=== PATIENT | female | born 1995 | race Two or more races ===

== ENCOUNTER 2017-05-18 12:09 | Outpatient (CLI) | payer OTHER ==
[2017-05-18 12:56] LABS: AMORPHOUS SEDIMENT,URINE TRACE /HPF; APPEARANCE,URINE SLIGHTLY-CLOUDY; BILIRUBIN,URINE NEGATIVE (NEGATIVE); COLOR,URINE YELLOW; GLUCOSE, URINE 50 mg/dL (NEGATIVE); KETONES,URINE NEGATIVE (NEGATIVE); LEUKOCYTE ESTERASE,URINE NEGATIVE (NEGATIVE); NITRITE,URINE NEGATIVE (NEGATIVE); PROTEIN,URINE NEGATIVE (NEGATIVE); UROBILINOGEN,URINE NEGATIVE mg/dL (<2.0)
[2017-05-18 13:12] LABS: AMNISURE (ROM) NEGATIVE (NEGATIVE)
--- NOTE | 2017-05-18 13:17 | Non Stress Test Report ---
Non Stress Test Datetime Report Generated by CPN: 05/18/2017 13:17 DEMOGRAPHIC EGA NST: 32.4 INDICATION Indication for Study: Ordered by Provider MONITORING Monitor Explained: Monitor Explained; Test Explained; Patient Verbalized Understanding Time on Monitor: 05/18/2017 12:28 Time off Monitor: 05/18/2017 13:14 NST Duration: 46 NST INTERVENTIONS NST Interventions: PO Hydration; Reposition Patient Physician Notified NST: J Infante CNM BABY A: [id number] BABY A Movement : Present Contraction Frequency : irreg FHR Baseline : 125 Accelerations : 15X15 Decelerations : None Variability : Moderate 6-25bpm NST Review: Meets Criteria for Reactive NST NST Review and Verified By : Tejas Gross RNC NST Results: Reactive NST REPORT Report Trigger: Send Report
[2017-05-18 13:22] LABS: URINE AMPHETAMINES SCREEN NEGATIVE; URINE BARBITURATES SCREEN NEGATIVE; URINE BENZODIAZEPINES SCREEN NEGATIVE; URINE COCAINE SCREEN NEGATIVE; URINE MARIJUANA (THC) SCREEN NEGATIVE; URINE METHADONE SCREEN NEGATIVE; URINE PHENCYCLIDINE SCREEN NEGATIVE
== END 2017-05-18 13:27 | disposition home or self-care (01) ==
LOC: LC 12:09
PROVIDERS: ATTEND Obstetrics & Gynecology
PROC: 4A1HXCZ Monitoring of Products of Conception, Cardiac Rate, External Approach (ICD-10-PCS; principal; 2017-05-18)
DX: O47.03 False labor before 37 completed weeks of gestation, third trimester (principal); Z3A.32 32 weeks gestation of pregnancy
CPT/HCPCS: 59025; 80307; 81001; 84112

== ENCOUNTER 2017-06-18 21:14 | Outpatient (CLI) | payer OTHER ==
[2017-06-18 22:02] LABS: URINE AMPHETAMINES SCREEN NEGATIVE; URINE BARBITURATES SCREEN NEGATIVE; URINE BENZODIAZEPINES SCREEN NEGATIVE; URINE COCAINE SCREEN NEGATIVE; URINE MARIJUANA (THC) SCREEN NEGATIVE; URINE METHADONE SCREEN NEGATIVE; URINE PHENCYCLIDINE SCREEN NEGATIVE
[2017-06-18 22:10] LABS: APPEARANCE,URINE CLEAR; BILIRUBIN,URINE NEGATIVE (NEGATIVE); COLOR,URINE COLORLESS; GLUCOSE, URINE 50 mg/dL (NEGATIVE)
[2017-06-18 22:11] LABS: KETONES,URINE NEGATIVE (NEGATIVE); LEUKOCYTE ESTERASE,URINE NEGATIVE (NEGATIVE); NITRITE,URINE NEGATIVE (NEGATIVE); PROTEIN,URINE NEGATIVE (NEGATIVE); URINE SPECIFIC GRAVITY 1.006; UROBILINOGEN,URINE NEGATIVE mg/dL (<2.0)
--- NOTE | 2017-06-18 23:26 | Non Stress Test Report ---
Non Stress Test Datetime Report Generated by CPN: 06/18/2017 23:25 DEMOGRAPHIC EGA NST: 37.0 INDICATION Indication for Study: Other Indication for Study (NST) Other: labor check MONITORING Monitor Explained: Monitor Explained; Test Explained; Patient Verbalized Understanding Time on Monitor: 06/18/2017 21:29 Time off Monitor: 06/18/2017 22:41 NST Duration: 72 NST INTERVENTIONS NST Interventions: PO Hydration Physician Notified NST: Lanier BABY A: [id number] BABY A Movement : Present Contraction Frequency : none FHR Baseline : 120 Accelerations : 15X15 Decelerations : None Variability : Moderate 6-25bpm NST Review: Meets Criteria for Reactive NST NST Review and Verified By : RUDDY ANTOINE Results: Reactive NST REPORT Report Trigger: Send Report
== END 2017-06-18 22:51 | disposition home or self-care (01) ==
LOC: LC 21:14
PROVIDERS: ATTEND Obstetrics & Gynecology Gynecology
DX: Z34.90 Encounter for supervision of normal pregnancy, unspecified, unspecified trimester (principal)
CPT/HCPCS: 59025; 80307; 81005

== ENCOUNTER 2017-07-03 23:21 | Outpatient (CLI) | payer OTHER ==
[2017-07-03 23:44] LABS: APPEARANCE,URINE CLOUDY; BILIRUBIN,URINE NEGATIVE (NEGATIVE); COLOR,URINE YELLOW; GLUCOSE, URINE NEGATIVE (NEGATIVE); KETONES,URINE NEGATIVE (NEGATIVE); LEUKOCYTE ESTERASE,URINE NEGATIVE (NEGATIVE); NITRITE,URINE NEGATIVE (NEGATIVE); PROTEIN,URINE 30 mg/dL (NEGATIVE)
[2017-07-04 00:08] LABS: URINE AMPHETAMINES SCREEN NEGATIVE; URINE BARBITURATES SCREEN NEGATIVE; URINE BENZODIAZEPINES SCREEN NEGATIVE; URINE COCAINE SCREEN NEGATIVE; URINE MARIJUANA (THC) SCREEN NEGATIVE; URINE METHADONE SCREEN NEGATIVE; URINE PHENCYCLIDINE SCREEN NEGATIVE
--- NOTE | 2017-07-04 00:11 | Non Stress Test Report ---
Non Stress Test Datetime Report Generated by CPN: 07/04/2017 00:11 DEMOGRAPHIC Test Number: 3 EGA NST: 39.1 INDICATION Indication for Study: Ordered by Provider Indication for Study (NST) Other: LC URINE RESULTS Urine Protein, NST: Positive Urine Ketones - NST: Negative Urine Glucose - NST: Negative Urine Blood - NST: Negative MONITORING Monitor Explained: Monitor Explained; Test Explained; Patient Verbalized Understanding Time on Monitor: 07/03/2017 23:36 Time off Monitor: 07/04/2017 00:00 NST Duration: 24 NST INTERVENTIONS NST Interventions: PO Hydration; Reposition Patient Physician Notified NST: Dr. Dawood BABY A: [id number] BABY A Movement : Present Contraction Frequency : irritability FHR Baseline : 125 Accelerations : 15X15 Decelerations : None Variability : Moderate 6-25bpm NST Review: Meets Criteria for Reactive NST NST Review and Verified By : ASAEL Woodard NST Results: Reactive NST REPORT Report Trigger: Send Report
== END 2017-07-04 00:30 | disposition home or self-care (01) ==
LOC: LC 23:21
PROVIDERS: ATTEND Obstetrics & Gynecology
PROC: 4A1HXCZ Monitoring of Products of Conception, Cardiac Rate, External Approach (ICD-10-PCS; principal; 2017-07-03)
DX: O47.1 False labor at or after 37 completed weeks of gestation (principal); O99.283 Endocrine, nutritional and metabolic diseases complicating pregnancy, third trimester; E86.0 Dehydration; O36.8130 Decreased fetal movements, third trimester, not applicable or unspecified; Z3A.39 39 weeks gestation of pregnancy
CPT/HCPCS: 59025; 80307; 81005

== ENCOUNTER 2017-07-11 23:06 | Outpatient (CLI) | payer OTHER ==
[2017-07-11] MEDS ORDERED: HYDROXYZINE PAMOATE 50 MG CAPSULE PO ONE (23:47)
[2017-07-11 23:53] LABS: APPEARANCE,URINE CLEAR; BILIRUBIN,URINE NEGATIVE (NEGATIVE); COLOR,URINE YELLOW; GLUCOSE, URINE NEGATIVE (NEGATIVE); KETONES,URINE NEGATIVE (NEGATIVE); LEUKOCYTE ESTERASE,URINE NEGATIVE (NEGATIVE); NITRITE,URINE NEGATIVE (NEGATIVE); PROTEIN,URINE NEGATIVE (NEGATIVE); URINE SPECIFIC GRAVITY 1.013; UROBILINOGEN,URINE NEGATIVE mg/dL (<2.0)
[2017-07-12 00:15] LABS: URINE AMPHETAMINES SCREEN NEGATIVE; URINE BARBITURATES SCREEN NEGATIVE; URINE BENZODIAZEPINES SCREEN NEGATIVE; URINE COCAINE SCREEN NEGATIVE; URINE MARIJUANA (THC) SCREEN NEGATIVE; URINE METHADONE SCREEN NEGATIVE; URINE PHENCYCLIDINE SCREEN NEGATIVE
[2017-07-12] MEDS ORDERED: HYDROXYZINE PAMOATE 50 MG CAPSULE ONE (00:15)
--- NOTE | 2017-07-12 00:34 | Non Stress Test Report ---
Non Stress Test Datetime Report Generated by CPN: 07/12/2017 00:34 DEMOGRAPHIC EGA NST: 40.3 INDICATION Indication for Study: Ordered by Provider MONITORING Monitor Explained: Monitor Explained; Test Explained; Patient Verbalized Understanding Time on Monitor: 07/12/2017 00:03 Time off Monitor: 07/12/2017 00:31 NST Duration: 28 NST INTERVENTIONS NST Interventions: PO Hydration Physician Notified NST: Dr. Dawood BABY A: [id number] BABY A Movement : Present Contraction Frequency : irregular FHR Baseline : 120 Accelerations : 15X15 Decelerations : None Variability : Moderate 6-25bpm NST Review: Meets Criteria for Reactive NST NST Review and Verified By : Sherita Proctor RN NST Results: Reactive NST REPORT Report Trigger: Send Report
== END 2017-07-12 00:47 | disposition home or self-care (01) ==
LOC: LC 23:06
PROVIDERS: ATTEND Obstetrics & Gynecology
PROC: 4A1HXCZ Monitoring of Products of Conception, Cardiac Rate, External Approach (ICD-10-PCS; principal; 2017-07-11)
DX: O47.1 False labor at or after 37 completed weeks of gestation (principal); Z3A.40 40 weeks gestation of pregnancy
CPT/HCPCS: 59025; 80307; 81005

== ENCOUNTER 2017-07-12 18:47 | Outpatient (CLI) | payer OTHER ==
[2017-07-12 20:51] LABS: APPEARANCE,URINE CLOUDY; BILIRUBIN,URINE NEGATIVE (NEGATIVE); COLOR,URINE YELLOW; GLUCOSE, URINE NEGATIVE (NEGATIVE); KETONES,URINE 80 mg/dL (NEGATIVE); LEUKOCYTE ESTERASE,URINE NEGATIVE (NEGATIVE); NITRITE,URINE NEGATIVE (NEGATIVE); PROTEIN,URINE 100 mg/dL (NEGATIVE); URINE SPECIFIC GRAVITY 1.023; UROBILINOGEN,URINE NEGATIVE mg/dL (<2.0)
[2017-07-12 21:09] LABS: URINE AMPHETAMINES SCREEN NEGATIVE; URINE BARBITURATES SCREEN NEGATIVE; URINE BENZODIAZEPINES SCREEN NEGATIVE; URINE COCAINE SCREEN NEGATIVE; URINE MARIJUANA (THC) SCREEN NEGATIVE; URINE METHADONE SCREEN NEGATIVE; URINE PHENCYCLIDINE SCREEN NEGATIVE
[2017-07-12] MEDS ORDERED: HYDROXYZINE PAMOATE 50 MG CAPSULE PO ONE (21:26)
[2017-07-12] MEDS ORDERED: HYDROXYZINE PAMOATE 50 MG CAPSULE ONE (21:29)
--- NOTE | 2017-07-12 21:37 | Non Stress Test Report ---
Non Stress Test Datetime Report Generated by CPN: 07/12/2017 21:37 DEMOGRAPHIC EGA NST: 40.3 INDICATION Indication for Study: Ordered by Provider MONITORING Monitor Explained: Monitor Explained; Test Explained; Patient Verbalized Understanding Time on Monitor: 07/12/2017 20:59 Time off Monitor: 07/12/2017 21:22 NST Duration: 23 NST INTERVENTIONS NST Interventions: PO Hydration Physician Notified NST: Dr Quinn BABY A: [id number] BABY A Movement : Present Contraction Frequency : 3-5 FHR Baseline : 130 Accelerations : 15X15 Decelerations : None Variability : Moderate 6-25bpm NST Review: Meets Criteria for Reactive NST NST Review and Verified By : Yulissa Sheehan RN NST Results: Reactive NST REPORT Report Trigger: Send Report
== END 2017-07-12 21:32 | disposition home or self-care (01) ==
LOC: LC 18:47
PROVIDERS: ATTEND Obstetrics & Gynecology
PROC: 4A1HXCZ Monitoring of Products of Conception, Cardiac Rate, External Approach (ICD-10-PCS; principal; 2017-07-12)
DX: O47.1 False labor at or after 37 completed weeks of gestation (principal); Z3A.40 40 weeks gestation of pregnancy
CPT/HCPCS: 80307; 81005

== ENCOUNTER 2017-07-13 11:21 | Inpatient (IN) | payer OTHER ==
[2017-07-13 11:50] LABS: APPEARANCE,URINE TURBID; BILIRUBIN,URINE NEGATIVE (NEGATIVE); COLOR,URINE YELLOW; GLUCOSE, URINE NEGATIVE (NEGATIVE); KETONES,URINE TRACE mg/dL (NEGATIVE); LEUKOCYTE ESTERASE,URINE MODERATE (NEGATIVE); NITRITE,URINE NEGATIVE (NEGATIVE); PROTEIN,URINE 100 mg/dL (NEGATIVE); URINE SPECIFIC GRAVITY 1.024
--- NOTE | 2017-07-13 11:56 | Admission Physical ---
Datetime Report Generated by CPN: 07/13/2017 11:56 CURRENT ADMISSION Hx Assessment: The History has been Reviewed and is Current Chief Complaint: Uterine Contractions; Suspected Ruptured Membranes Indication for Induction: Not Applicable Admit Impression : Term, Intrauterine ; Active Labor; Ruptured Membranes Admit Plan: Admit to Unit; Initiate Labor Protocol ALLERGIES Medication Allergies: Yes Medication Allergies: penicillin G (07/12/2017) Latex: No Latex Allergies Food Allergies: none Environmental Allergies: none OBSTETRICAL HISTORY EDC: 07/09/2017 00:00 : 2 Para: 0 Term: 0 : 0 SAB: 0 IAB: 0 Ectopic: 0 Livin Cesareans: 0 VBACs: 0 Multiple Births: 0 Gestational Diabetes: No Rh Sensitization: No Incompetent Cervix: No JESUS: No Infertility: No ART Treatment: No Uterine Anomaly: No IUGR: No Hx Previous C/S: No Macrosomia: No Hx Loss/Stillborn: No PIH: No Hx : No Placenta Previa/Abruption: No Depression/PP Depression: No PTL/PROM: No Post Hemorrhage: No Current Procedures: Ultrasound; NST Obstetrical History Comments: G1: September 2016 Pt states that she had a 16 week u/s comfirming the gender. Pt states that she never had the baby but had some spotting and when she f/u with [facility] is 10/2016 pt was told she was 6wks with current . No record of this at [facility] G2: current SEE RECORDS Alcohol: No Marijuana : No Cocaine: No Other Illicit Drugs: No Cigarettes: Never Smoker. [id number] MEDICAL HISTORY Diabetes: No Blood Transfusion: No Pulmonary Disease (Asthma, TB): No Breast Disease: No Hypertension: No Medical Review Coordinator Surgery: No Heart Disease: No Hosp/Surgery: No Autoimmune Disorder: No Anesthetic Complications: No Kidney Disease: No Abnormal Pap Smear: No Neuro/Epilepsy: No Psychiatric Disorders: No Other Medical Diseases: No Hepatitis/Liver Disease: No Significant Family History: No Varicosities/Phlebitis: No Trauma/Violence : No Thyroid Dysfunction: No INFECTIOUS HISTORY Gonorrhea: No Genital Herpes: No Chlamydia: No Tuberculosis: No Syphilis: No Hepatitis: No HIV/AIDS Exposure: No Rash or Viral Illness: No HPV: No PHYSICAL EXAM General: Normal HEENT: Normal Neurologic: Normal Thyroid: Deferred Heart: Normal Lungs: Normal Breast: Normal Back: Normal Abdomen: Normal Genitourinary Exam: Normal Extremities: Normal DTRs: Normal Pelvic Type: Adequate Vital Signs: Reviewed VAGINAL EXAM Dilatation: 4 Effacement: 100 Station: 1 Contraction Comments: every 2 min MEMBRANES Membranes: Ruptured FETUS A EGA: 40.4 Monitoring: External US FHR- Baseline: 135 Variability: Moderate 6-25bpm Decelerations: Early FHR Category: Category I Estimated Weight (gm): 3600 Presentation: Vertex Admit Comment: ctx all day, ? water broke GBS negative low lying placetna, resolved excessive wt gain otherwise uncomplicated Admit to L and D May have epidural Anticipate PLANS FOR LABOR AND DELIVERY Labor and Delivery: None Pain Management: Natural Feeding Preference: Breast Benefit of Breast Feed Discussed: Yes Circumcision: Yes INFORMED CONSENT Assignment: Manuela Andrade MD Signature: with User ID: Bo : with User ID: [email or web address]
[2017-07-13 12:01] LABS: AMNISURE (ROM) POSITIVE (NEGATIVE)
[2017-07-13] MEDS ORDERED: OXYTOCIN/NORMAL SALINE 20 UNIT/1,000 ML RTUINJ ONE ×2 (12:05→15:35)
[2017-07-13] MEDS ORDERED: MISOPROSTOL 0.2 MG TABLET ONE (12:05)
[2017-07-13] MEDS ORDERED: LIDOCAINE 1% INJ-PF (10 MG/ML) 30 ML SDV ONE (12:05)
[2017-07-13 12:39] LABS: URINE AMPHETAMINES SCREEN NEGATIVE; URINE BARBITURATES SCREEN NEGATIVE; URINE BENZODIAZEPINES SCREEN NEGATIVE; URINE COCAINE SCREEN NEGATIVE; URINE MARIJUANA (THC) SCREEN NEGATIVE; URINE METHADONE SCREEN NEGATIVE; URINE PHENCYCLIDINE SCREEN NEGATIVE
[2017-07-13 12:43] LABS: ABSOLUTE BASOPHILS # (AUTO) 0.1 10^3/uL (0.0-0.2); ABSOLUTE LYMPHOCYTES (AUTO) 0.9 10^3/uL (0.5-4.7); ABSOLUTE MONOCYTES (AUTO) 0.7 10^3/uL (0.1-1.4); ABSOLUTE NEUT (AUTO) 11.9 10^3/uL (1.7-8.2); BASOPHILS % (AUTO) 0.6 % (0-2); EOSINOPHILS % (AUTO) 0.1 % (0-6); HEMATOCRIT 35.7 % (36.0-47.0); HEMOGLOBIN 11.6 g/dL (12.0-15.5); LYMPHOCYTES % (AUTO) 6.9 % (13-45); MEAN CORPUSCULAR HEMOGLOBIN 26.6 pg (27.0-33.4); MEAN CORPUSCULAR HGB CONC 32.5 g/dL (32.0-36.0); MEAN CORPUSCULAR VOLUME 82 fl (80-97); MONOCYTES % (AUTO) 5.4 % (3-13); PLATELET COUNT 151 10^3/uL (150-450); RED BLOOD COUNT 4.36 10^6/uL (3.72-5.28); RED CELL DISTRIBUTION WIDTH 15.4 % (11.5-14.0); TOTAL CELLS COUNTED % (AUTO) 100 %; WHITE BLOOD COUNT 13.6 10^3/uL (4.0-10.5)
[2017-07-13] MEDS ORDERED: FENTANYL/BUPIVACAINE/NS/PF 300 MCG/150 ML RTUINJ EPI ONE (13:13)
[2017-07-13] MEDS ORDERED: EPHEDRINE SULFATE INJ 50 MG/1 ML AMPULE ONE (13:13)
[2017-07-13] MEDS ORDERED: FENTANYL CITRATE INJ/PF 100 MCG/2 ML AMPUL ONE (13:13)
[2017-07-13] MEDS ORDERED: BUPIVACAINE HCL 0.25 % INJ/PF (2.5 MG/1 ML) 30 ML VIAL ONE (13:14)
[2017-07-13] MEDS ORDERED: OXYTOCIN/NORMAL SALINE 20 UNIT/1,000 ML RTUINJ IV PRN ×2 (15:35→19:41)
--- NOTE | 2017-07-13 18:31 | L&D Progress Notes ---
PROGRESS NOTES Datetime Report Generated by CPN: 07/13/2017 18:30 PROGRESS NOTE Impression: Normal Progression of Labor Procedures: Sterile Vag Exam Plan: Continue Present Management; Augmentation Informed Consent Obtained: Vaginal Delivery; Risks, Benefits and Alternatives Discussed Vital Signs : Reviewed Comment: PL/100/2. Will sit pt up. Anticipate VAGINAL EXAM Dilatation: 9 Dilatation: 4 Effacement: 100 Effacement: 100 Station: 2 Station: 1 Contractions: Q2-3 Contractions: every 2 min MEMBRANES Membranes: Ruptured FETUS A FHR - Baseline: 145 Monitoring: External US Variability: Moderate 6-25bpm Accelerations: 15X15 Decelerations: None FHR Category: Category I Estimated Weight (gm): 3600 Presentation: Vertex SIGNATURE SIGNATURE: 10,[id number];14,[id number];13,[id number] SIGNATURE: 13,[id number];14,[id number] SIGNATURE: ,[id number] SIGNATURE: 14,[id number] SIGNATURE: 14,[id number] SIGNATURE: 14,[id number] SIGNATURE: 14,[id number] Signature: with User ID: [email or web address]
[2017-07-13] MEDS ORDERED: PROMETHAZINE HCL 25 MG TABLET PO PRN (19:41)
[2017-07-13] MEDS ORDERED: PSEUDOEPHEDRINE HCL 30 MG TABLET PO PRN (19:41)
[2017-07-13] MEDS ORDERED: GLYCERIN/WITCH HAZEL LEAF 1 EACH MED..PAD TP PRN (19:41)
[2017-07-13] MEDS ORDERED: NA PHOS,M-B/NA PHOS,DI-BA (ADULT) 133 ML ENEMA PR PRN (19:41)
[2017-07-13] MEDS ORDERED: PROMETHAZINE HCL INJ 25 MG/1 ML VIAL IV PRN (19:41)
[2017-07-13] MEDS ORDERED: MEASLES,MUMPS&RUBELLA VACC/PF 0.5 ML VIAL SUBCUT PRN (19:41)
[2017-07-13] MEDS ORDERED: DIBUCAINE 1% OINTMENT 28 GM TP PRN (19:41)
[2017-07-13] MEDS ORDERED: DIPH/PERTUSS(ACELL)/TETANUS VAC/PF 0.5 ML SYR (>=10YO) IM PRN (19:41)
[2017-07-13] MEDS ORDERED: PROMETHAZINE HCL 25 MG SUPP.RECT PR PRN (19:41)
[2017-07-13] MEDS ORDERED: ACETAMINOPHEN WITH CODEINE #3 TABLET PO PRN ×2 (19:41)
[2017-07-13] MEDS ORDERED: BENZOCAINE/MENTHOL AEROSOL SPRAY 56 ML TOP PRN (19:41)
[2017-07-13] MEDS ORDERED: ACETAMINOPHEN 325 MG TABLET PO PRN (19:41)
[2017-07-13] MEDS ORDERED: DIPHENHYDRAMINE HCL 25 MG CAPSULE PO PRN (19:41)
[2017-07-13] MEDS ORDERED: MAGNESIUM HYDROXIDE SUSP 30 ML UDCUP PO PRN (19:41)
[2017-07-13] MEDS ORDERED: ZOLPIDEM TARTRATE 5 MG TABLET PO PRN (19:41)
--- NOTE | 2017-07-13 20:55 | Delivery Summary ---
Del Sum A-C Datetime Report Generated by CPN: 07/13/2017 20:54 DELIVERY PERSONNEL DELIVERY PERSONNEL: [id number] Delivery Doctor:: Manuela Andrade MD Anesthesiologist:: Katy Rosales MD DATA MANAGEMENT MANAGER:: dr. rosales Labor and Delivery Nurse:: Tyson Aguilar RNassembler watch train Nurse:: Sammie Castillo RN Nursery Nurse:: Elysia Hector RN Torch Shearer/COAT PRESSER: [facility] Additional Personnel: : Leticia Elliott RN MATERNAL INFORMATION Delivery Anesthesia: Epidural Medications After Delivery: Pitocin Drip 20 Units/1000ml NSS Estimated Blood Loss (ml): 250 Maternal Complications: None Provider Comments: VMI delivered in NANDA presentation. No nuchal cord. Shoulders and body delivered without difficulty. Cord doubly clamped and cut and to maternal abdomen for NRP. Placenta delivered intact spontaneously. FF at U. single vaginal abrasion noted and repaired with single suture. Good hemostasis. Mother and baby stable upon provider leaving the room. LABOR SUMMARY EDC: 07/09/2017 00:00 No. Babies in Womb: 1 Attempted: No Labor Anesthesia: None LABOR INFORMATION Reason for Induction: Not Applicable Onset of Labor: 07/13/2017 06:00 Complete Dilatation: 07/13/2017 18:39 Oxytocin: N/A Group B Beta Strep: Negative Antibiotics # of Doses: n/a Antibiotics Time of Last Dose: n/a Name of Antibiotic Given: n/a Steroids Given: None Reason Steroids Not Administered: Indication MEMBRANES Membranes Rupture Method: Spontaneous Rupture of Membranes: 07/13/2017 06:00 Length of Rupture (hr): 13.28 Amniotic Fluid Color: Clear Amniotic Fluid Amount: Small Amniotic Fluid Odor: Normal STAGES OF LABOR Stage 1 hr: 12 Stage 1 min: 39 Stage 2 hr: 0 Stage 2 min: 38 Stage 3 hr: 0 Stage 3 min: 3 Total Time in Labor hr: 13 Total Time in Labor min: 20 VAGINAL DELIVERY Episiotomy: None Laceration #1: Vaginal Laceration Extension #1: N/A Other Laceration: abrasion Laceration Repair: Yes Laceration Repair Note: single interrupted suture placed for hemostasis Sponge Count Correct: Yes Sharps Count Correct: Yes BABY A INFORMATION Delivery Date/Time: 07/13/2017 19:17 Method of Delivery: Vaginal Born in Route : No : N/A Forceps: N/A Vacuum Extraction: N/A Shoulder Dystocia : No PRESENTATION/POSITION BABY A Presentation: Cephalic Cephalic Presentation: Vertex Vertex Position: Right Occipital Anterior Breech Presentation: N/A PLACENTA INFORMATION BABY A Placenta Delivery Time : 07/13/2017 19:20 Placenta Method of Delivery: Spontaneous Placenta Status: Delivered SCORES BABY A Heart Rate 1 min: >100 bpm Resp Effort 1 min: Good Cry Reflex Irritability 1 min: Cough or Sneeze or Pulls Away Muscle Tone 1 min: Active Motion Color 1 min: Body [place], Extremities Blue Resuscitation Effort 1 min: Tactile Stimulation SCORE 1 MIN: 9 Heart Rate 5 min: >100 bpm Resp Effort 5 min: Good Cry Reflex Irritability 5 min: Cough or Sneeze or Pulls Away Muscle Tone 5 min: Active Motion Color 5 min: Body [place], Extremities Blue Resuscitation Effort 5 min: Tactile Stimulation SCORE 5 MIN: 9 INFORMATION BABY A Gestational Age at Delivery: 40.4 Gestational Status: Full Term- 39- 40.6 Weeks Outcome : Liveborn Condition : Stable Infant Sex: Male IDENTIFICATION BABY A Verification Date/Time: 07/13/2017 19:26 ID Band Number: [id number] Mother's Name Verified: Yes Infant RN Verifying Infant: R Reji RN Additional Verifying Personnel: D Benji WEIGHT/LENGTH BABY A Infant Birthweight (gm): 3290 Weight (lb): 7 Weight (oz): 4 Length (in): 21.00 Infant Length (cm): 53.34 CORD INFORMATION BABY A No. Cord Vessels: 3 Nuchal Cord : N/A Cord Blood Taken: Yes-For Storage (Mom's Blood type +) ASSESSMENT BABY A Complications: Multiple Variable Decels Physical Findings at Delivery: Within Normal Limits Infant Respirations: Appears Normal Skin to Skin: Yes Room Service [employer]/ALS Called : No Transferred To: Remains with Mother BABY B INFORMATION : N/A SIGNATURES Signature: with User ID: [email or web address]
[2017-07-14] MEDS: IBUPROFEN 800 MG TABLET PO SCH ×4 (00:25→22:53)
[2017-07-14] MEDS: FAMOTIDINE 20 MG TABLET PO SCH ×3 (00:28→22:52)
[2017-07-14 07:01] LABS: HEMOGLOBIN 10.5 g/dL (12.0-15.5); MEAN CORPUSCULAR HEMOGLOBIN 26.8 pg (27.0-33.4); MEAN CORPUSCULAR HGB CONC 32.7 g/dL (32.0-36.0); MEAN CORPUSCULAR VOLUME 82 fl (80-97); PLATELET COUNT 118 10^3/uL (150-450); RED BLOOD COUNT 3.91 10^6/uL (3.72-5.28); WHITE BLOOD COUNT 13.2 10^3/uL (4.0-10.5)
--- NOTE | 2017-07-14 08:43 | PDOC PROGRESS REPORT ---
Subjective-OB Progress Note for:: 07/14/17 Physical Exam (OB) Vital Signs: Temp Pulse Resp BP Pulse Ox 97.9 F 100 16 95/54 L 98 07/14/17 07:09 07/14/17 07:09 07/14/17 07:09 07/14/17 07:09 07/14/17 07:09 Intake & Output 07/13/17 07/14/17 07/15/17 06:59 06:59 06:59 Weight 90.3 kg - Lochia Lochia Amount: Scant < 10 ml Lochia Color: Rubra/Red - Abdomen Description: Soft, Flat, Round Hernia Present: No Bowel Sounds: Normoactive Flatus Presence: Present Stool: No Fundal Description: Firm, Midline Fundal Height: u/u - u/2 Objective-Diagnostic Laboratory: 07/14/17 06:23 07/13/17 07/13/17 07/13/17 11:29 12:28 12:28 WBC 13.6 H RBC 4.36 Hgb 11.6 L Hct 35.7 L MCV 82 MCH 26.6 L MCHC 32.5 RDW 15.4 H Plt Count 151 Seg Neutrophils % 87.0 H Lymphocytes % 6.9 L Monocytes % 5.4 Eosinophils % 0.1 Basophils % 0.6 Absolute Neutrophils 11.9 H Absolute Lymphocytes 0.9 Absolute Monocytes 0.7 Absolute Eosinophils 0.0 Absolute Basophils 0.1 Urine Color YELLOW Urine Appearance TURBID Urine pH 5.0 Ur Specific [place] 1.024 Urine Protein 100 H Urine Glucose (UA) NEGATIVE Urine Ketones TRACE H Urine Blood LARGE H Urine Nitrite NEGATIVE Ur Leukocyte Esterase MODERATE H Blood Type B POSITIVE Antibody Screen NEGATIVE 07/14/17 06:23 WBC 13.2 H RBC 3.91 Hgb 10.5 L Hct 32.0 L MCV 82 MCH 26.8 L MCHC 32.7 RDW 16.0 H Plt Count 118 L Seg Neutrophils % Lymphocytes % Monocytes % Eosinophils % Basophils % Absolute Neutrophils Absolute Lymphocytes Absolute Monocytes Absolute Eosinophils Absolute Basophils Urine Color Urine Appearance Urine pH Ur Specific [place] Urine Protein Urine Glucose (UA) Urine Ketones Urine Blood Urine Nitrite Ur Leukocyte Esterase Blood Type Antibody Screen
[2017-07-14] MEDS: FERROUS SULFATE 325 MG TABLET PO SCH ×2 (09:02→17:22)
[2017-07-14] MEDS: SENNOSIDES/DOCUSATE 8.6-50 MG 1 EACH TABLET PO SCH (09:03)
[2017-07-14] MEDS: PRENATAL VITAMIN W DHA CAPSULE PO SCH (09:03)
[2017-07-14] MEDS: DOCUSATE SODIUM 100 MG CAPSULE PO SCH ×2 (09:03→17:22)
[2017-07-15] MEDS: IBUPROFEN 800 MG TABLET PO SCH ×2 (07:32→18:17)
--- NOTE | 2017-07-15 09:02 | PDOC PROGRESS REPORT ---
Subjective-OB Progress Note for:: 07/15/17 Subjective: Ready to go home. Physical Exam (OB) Vital Signs: Temp Pulse Resp BP Pulse Ox 98.3 F 100 16 105/63 98 07/15/17 07:24 07/15/17 07:24 07/15/17 07:24 07/15/17 07:24 07/15/17 07:24 Intake & Output 07/14/17 07/15/17 07/16/17 06:59 06:59 06:59 Weight 90.3 kg - PIH/Pre-Eclampsia DTR's: 2 + Clonus: Negative Headache: Absent Epigastric Pain: No Visual Changes: No - Lochia Lochia Amount: Scant < 10 ml Lochia Color: Rubra/Red - Abdomen Description: Soft, Round Hernia Present: No Bowel Sounds: Normoactive Flatus Presence: Present Stool: Yes Fundal Description: Firm, Midline Fundal Height: u/u - u/2 Objective-Diagnostic Laboratory: 07/14/17 06:23
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
[2017-07-15] MEDS: DOCUSATE SODIUM 100 MG CAPSULE PO SCH ×2 (09:21→18:18)
[2017-07-15] MEDS: SENNOSIDES/DOCUSATE 8.6-50 MG 1 EACH TABLET PO SCH (09:21)
[2017-07-15] MEDS: PRENATAL VITAMIN W DHA CAPSULE PO SCH (09:22)
[2017-07-15] MEDS: FERROUS SULFATE 325 MG TABLET PO SCH ×2 (09:22→18:18)
[2017-07-15] MEDS: FAMOTIDINE 20 MG TABLET PO SCH (09:23)
[2017-07-15 10:47] VITALS: BP 116/64
== END 2017-07-15 18:50 | disposition home or self-care (01) | DRG 774 ==
LOC: LC 11:21 → LR 11:58 → 2N 21:25
PROVIDERS: ADMIT Student in an Organized Health Care Education/Training Program; ATTEND Student in an Organized Health Care Education/Training Program
PROC: 10E0XZZ Delivery of Products of Conception, External Approach (ICD-10-PCS; principal; 2017-07-13)
PROC: 0UQMXZZ Repair Vulva, External Approach (ICD-10-PCS; 2017-07-13)
PROC: 4A1HXCZ Monitoring of Products of Conception, Cardiac Rate, External Approach (ICD-10-PCS; 2017-07-13)
DX: O44.43 Low lying placenta NOS or without hemorrhage, third trimester (principal); O26.03 Excessive weight gain in pregnancy, third trimester; S31.41XA Laceration without foreign body of vagina and vulva, initial encounter; O76 Abnormality in fetal heart rate and rhythm complicating labor and delivery; Z88.0 Allergy status to penicillin; Z3A.40 40 weeks gestation of pregnancy; Z37.0 Single live birth
CPT/HCPCS: 36415; 80307; 81005; 84112; 85025; 85027; 86592; 86850; 86900; 86901; 94760; J2590; J3010; J3490

== ENCOUNTER 2017-07-27 19:41 | Emergency (ER) | payer OTHER ==
--- NOTE | 2017-07-27 20:06 | ER Document Report ---
ED Medical Screen (RME) - General Chief Complaint: Vaginal Bleeding Stated Complaint: VAGINAL BLEEDING Time Seen by Provider: 07/27/17 19:58 Notes: Patient is a 21-year-old female, 2 weeks , presents with vaginal bleeding and passing clots. Denies lightheadedness or pain. PE: Non-tender abdomen. NAD. Pelvic exam deferred in PIT. I have greeted and performed a rapid initial assessment of this patient. A comprehensive ED assessment and evaluation of the patient, analysis of test results and completion of the medical decision making process will be conducted by additional ED providers. TRAVEL OUTSIDE OF THE [place] IN LAST 30 DAYS: No - Related Data Allergies/Adverse Reactions: penicillin G Allergy (Verified 07/27/17 19:58) Past Medical History - General Last Menstrual Period: 2 weeks pp - Social History Chew tobacco use (# tins/day): No Frequency of alcohol use: None Drug Abuse: None Renal/ Medical History: Denies: Hx Peritoneal Dialysis Physical Exam - Vital signs Vitals: Temp Pulse Resp BP Pulse Ox 98.8 F 95 14 121/64 96 07/27/17 19:49 07/27/17 19:49 07/27/17 19:49 07/27/17 19:49 07/27/17 19:49 Course - Vital Signs Vital signs: Temp Pulse Resp BP Pulse Ox 98.8 F 95 14 121/64 96 07/27/17 19:49 07/27/17 19:49 07/27/17 19:49 07/27/17 19:49 07/27/17 19:49
--- NOTE | 2017-07-27 20:21 | ER Document Report ---
HPI - HPI Patient complains to provider of: Vaginal bleeding Onset: Other - 2 weeks Onset/Duration: Worse Quality of pain: Cramping Pain Level: 2 Context: Patient is 2 weeks . Patient states that she has had vaginal bleeding that increased today with clots. Patient denies having any sexual intercourse. Patient denies any episiotomy. Patient denies any complications with delivery. Associated Symptoms: denies: Fever Exacerbated by: Denies Relieved by: Denies Similar symptoms previously: No Recently seen / treated by doctor: Yes - ROS ROS below otherwise negative: Yes Systems Reviewed and Negative: Yes All other systems reviewed and negative - CONSTITUTIONAL Constitutional: DENIES: Fever - REPRODUCTIVE LMP: na Reproductive: REPORTS: Abnormal bleeding / discharge - DERM Skin Color: Normal Skin Problems: None Past Medical History - General Information source: Patient Last Menstrual Period: 2 weeks pp - Social History Smoking Status: Never Smoker Chew tobacco use (# tins/day): No Frequency of alcohol use: None Drug Abuse: None Occupation: None Lives with: Family Family History: Reviewed & Not Pertinent Patient has suicidal ideation: No Patient has homicidal ideation: No - Medical History Medical History: Negative Renal/ Medical History: Denies: Hx Peritoneal Dialysis Surgical Hx: Negative Vertical Provider Document - CONSTITUTIONAL Agree With Documented VS: Yes Exam Limitations: No Limitations General Appearance: WD/WN, No Apparent Distress - INFECTION CONTROL TRAVEL OUTSIDE OF THE [place] IN LAST 30 DAYS: No - HEENT HEENT: Atraumatic, Normocephalic - NECK Neck: Normal Inspection - RESPIRATORY Respiratory: Breath Sounds Normal, No Respiratory Distress - CARDIOVASCULAR Cardiovascular: Regular Rate, Regular Rhythm, No Murmur. negative: Tachycardia - GI/ABDOMEN Gastrointestinal: Abdomen Soft, Abdomen Non-Tender - REPRODUCTIVE Notes: Minimal blood noted in vaginal vault, no clots. - MUSCULOSKELETAL/EXTREMETIES Musculoskeletal/Extremeties: MAEW - NEURO Level of Consciousness: Awake, Alert, Appropriate Motor/Sensory: No Motor Deficit - DERM Integumentary: Warm, Dry Course - Re-evaluation Re-evalutation: 07/27/17 20:[address] Wilks regarding patient presentation, discussed patient's CBC, vital signs as well as pelvic exam findings. Recommends outpatient follow- up in the office tomorrow for recheck. - Vital Signs Vital signs: Temp Pulse Resp BP Pulse Ox 98.8 F 95 14 121/64 96 07/27/17 19:49 07/27/17 19:49 07/27/17 19:49 07/27/17 19:49 07/27/17 19:49 - Laboratory Result Diagrams: 07/27/17 20:25 Discharge - Discharge Clinical Impression: Vagina bleeding Condition: Stable Disposition: HOME, SELF-CARE Additional Instructions: Return immediately for any new or worsening symptoms Followup with your [facility] provider tomorrow for repeat examination. Referrals: HALLEY WILKS MD [ACTIVE STAFF] - Follow up tomorrow
[2017-07-27 20:40] LABS: ABSOLUTE EOSINOPHILS # (AUTO) 0.2 10^3/uL (0.0-0.6); ABSOLUTE LYMPHOCYTES (AUTO) 1.6 10^3/uL (0.5-4.7); ABSOLUTE MONOCYTES (AUTO) 0.4 10^3/uL (0.1-1.4); BASOPHILS % (AUTO) 0.2 % (0-2); HEMATOCRIT 42.8 % (36.0-47.0); HEMOGLOBIN 13.7 g/dL (12.0-15.5); LYMPHOCYTES % (AUTO) 25.3 % (13-45); MEAN CORPUSCULAR HEMOGLOBIN 26.3 pg (27.0-33.4); MEAN CORPUSCULAR VOLUME 82 fl (80-97); MONOCYTES % (AUTO) 5.7 % (3-13); PLATELET COUNT 169 10^3/uL (150-450); RED BLOOD COUNT 5.21 10^6/uL (3.72-5.28); SEGMENTED NEUTROPHILS % (AUTO) 64.8 % (42-78); TOTAL CELLS COUNTED % (AUTO) 100 %; WHITE BLOOD COUNT 6.2 10^3/uL (4.0-10.5)
[2017-07-27 21:01] VITALS: BP 125/73
== END 2017-07-27 21:00 | disposition home or self-care (01) ==
LOC: ER 19:41
DX: O90.9 Complication of the puerperium, unspecified (principal); N93.8 Other specified abnormal uterine and vaginal bleeding
CPT/HCPCS: 36415; 85025; 99284